=== PATIENT | male | born 1945 | race Caucasian/White ===

== ENCOUNTER 2019-02-24 22:34 | Emergency (ER) | payer OTHER ==
[~2019-02-24] VITALS: Ht 167.6 cm; Wt 92.1 kg
--- NOTE | 2019-02-24 22:50 | NUR ---
PT BIB [facility] WITH A C/O SOB AND PALPITATIONS. PT REC'D A BREATHING TX IN THE FIELD. PT IS AMBULATORY WITH A STEADY GAIT. PT WAS PLACED ON THE MONITOR AND POX. ACCUCHECK AND RECHECK DONE. PT'S BLOOD GLUCOSE WAS 436. WAS NOTIFIED. PT IS FEBRILE
[2019-02-24] MEDS ORDERED: IV NS 0.9% 1,000 ML BAG IV ONE (23:00)
[2019-02-24] MEDS ORDERED: INSULIN REGULAR, HUMAN 100 UNIT/ML 3 ML VIAL IV ONE (23:00)
--- NOTE | 2019-02-24 23:00 | NUR ---
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
[2019-02-24] MEDS ORDERED: INSULIN REGULAR, HUMAN 100 UNIT/ML 10 ML VIAL ONE (23:05)
[2019-02-24] MEDS ORDERED: LIDOCAINE 2% JEL UROJET 10 ML MM ONE ×2 (23:06→23:30)
[2019-02-24 23:34] LABS: BASOPHILS % (AUTO) 0.3 % (0.0-2.0); EOSINOPHILS % (AUTO) 0.4 % (0.0-6.0); HEMATOCRIT 30 % (39-51); HEMOGLOBIN 9.7 g/dL (13.5-17.5); LYMPHOCYTES # (AUTO) 0.9 /CMM (0.8-4.8); MEAN CORPUSCULAR HGB CONC 32 g/dl (31.0-36.0); MEAN CORPUSCULAR VOLUME 92 fL (80-96); MONOCYTES # (AUTO) 1.7 /CMM (0.1-1.30); MONOCYTES % (AUTO) 10.8 % (2.0-12.0); NEUTROPHILS % (AUTO) 82.5 % (43.0-81.0); PLATELET COUNT (AUTO) 341 /CMM (150-450); RED BLOOD CELL COUNT(AUTO) 3.28 MIL/uL (4.5-6.0); WHITE BLOOD COUNT (AUTO) 15.7 K/uL (4.3-11.0)
[2019-02-24 23:37] LABS: APPEARANCE,URINE Clear (CLEAR); BILIRUBIN,URINE Negative (NEGATIVE); BLOOD, URINE Moderate Ery/uL (NEGATIVE); COLOR,URINE Yellow (YELLOW); KETONES,URINE Negative (NEGATIVE); LEUKOCYTE ESTERASE ,URINE Negative (NEGATIVE); NITRITE, URINE Negative (NEGATIVE); PH,URINE 5.5 (5.0-8.0); PROTEIN,URINE >=300 mg/dl (NEGATIVE); UGLUCOSE >=1000 mg/dL (NEGATIVE); UROBILINOGEN,URINE 0.2 EU/dL (0.2)
[2019-02-24] MEDS ORDERED: ACETAMINOPHEN ES 500 MG TABLET ONE (23:54)
[2019-02-25] MEDS ORDERED: ACETAMINOPHEN 325 MG TABLET PO ONE
[2019-02-25 00:05] LABS: ALANINE AMINOTRANSFERASE 12 U/L (12-78); ALBUMIN 2.3 g/dL (3.4-5.0); ALKALINE PHOSPHATASE 177 U/L (46-116); ASPARTATE AMINOTRANSFERASE 16 U/L (15-37); BILIRUBIN,DIRECT 0.1 mg/dL (0.0-0.2); BILIRUBIN,TOTAL 0.2 mg/dL (0.2-1.0); CARBON DIOXIDE 24 mmol/L (21-32); CHLORIDE 96 mmol/L (98-107); CREATININE 2.6 mg/dL (0.6-1.3); POTASSIUM 4.4 mmol/L (3.5-5.1); SODIUM SERUM 131 mmol/L (136-145); TOTAL PROTEIN, SERUM 6.6 g/dL (6.4-8.2); UREA NITROGEN, BLOOD 50 mg/dL (7-18)
[2019-02-25 00:06] LABS: B-TYPE NATRIURETIC PEPTIDE 4713 PG/ML (0-125); GLUCOSE 467 mg/dL (74-106)
[2019-02-25 00:17] LABS: BACTERIA,URINE None seen /HPF (None Seen); MUCUS,URINE Few /LPF (None Seen); SQUAMOUS EPITHELIAL CELL,UR Few /HPF (None Seen); WBC,URINE 0-2 /HPF (0-3)
[2019-02-25] MEDS ORDERED: FUROSEMIDE 40 MG/4 ML VIAL ONE (00:22)
[2019-02-25] MEDS ORDERED: TRAMADOL HCL 50 MG TABLET ONE (00:23)
[2019-02-25] MEDS ORDERED: TRAMADOL HCL 50 MG TABLET PO ONE (00:30)
[2019-02-25] MEDS ORDERED: FUROSEMIDE 40 MG/4 ML VIAL IV ONE (00:30)
--- NOTE | 2019-02-25 00:40 | NUR ---
SPOKE TO JARETT, RECONCILIATION CLERK FOR PT'S INSURANCE, WITH AN UPDATE ON CLINICALS AND VITAL SIGNS.
--- NOTE | 2019-02-25 00:40 | NUR ---
Priscilla mcneill in [facility] - 02/25/19 at 0046 by [email or web address] [employer] ARCHITECT,
[2019-02-25 00:44] VITALS: BP 175/74
--- NOTE | 2019-02-25 01:05 | NUR ---
JARETT, TOW TRUCK OPERATOR CALLED BACK. PT IS BEING TRANSFERED TO [facility]. PT WAS NOTIFIED. DR UP IS AWARE.
--- NOTE | 2019-02-25 01:10 | NUR ---
PT CALLED HIS DAUGHTER RE: TRANSFER TO [facility].
--- NOTE | 2019-02-25 01:42 | NUR ---
PT APPEARS TO BE SLEEPING SOUNDLY WITH NO S/S OF PAIN OR DISTRESS.
--- NOTE | 2019-02-25 02:12 | NUR ---
JARETT, OPERATING ROOM ASSISTANT, CALLED RE: PT TRANSFER. PT IS GOING TO ROOM #217 B NURSE FOR REPORT IS: SUZI RN @ [phone] ETA: 30MIN [facility] ACCEPTING MD: DR SARABIA.
--- NOTE | 2019-02-25 02:13 | NUR ---
CALLING REPORT TO ESPERANZA ARCHER AT [facility].
--- NOTE | 2019-02-25 02:52 | NUR ---
PT LEFT VIA AMBULANCE TO [facility].
== END 2019-02-25 02:54 | disposition short-term general hospital (02) ==
LOC: ER 22:39
DX: I11.0 Hypertensive heart disease with heart failure (principal); I50.9 Heart failure, unspecified; E11.65 Type 2 diabetes mellitus with hyperglycemia; R00.2 Palpitations; R33.9 Retention of urine, unspecified
CPT/HCPCS: 36415; 71045; 80048; 80076; 81001; 82010; 82962 ×3; 83880; 84484; 85025; 93005; 96361; 96374; 96375; 99285; J1815; J1940; J3490; J7030; 81000-TC